=== PATIENT | female | born 1950 | race Caucasian/White ===

== ENCOUNTER 2021-01-29 09:01 | Emergency (ER) | payer OTHER, SELFPAY ==
[~2021-01-29] VITALS: Ht 157.5 cm; Wt 72.9 kg
--- NOTE | 2021-01-29 09:18 | NUR ---
PT BIB FRIEND VIA POV. PER PT SHE HAS HAD R FLANK PAIN, RADIATING TO FRONT ABD RLQ. PT STATE SHE WOKE UP THIS MORNING WITH BLOOD IN URINE. PT STATES HER PAIN IS 7/10. FRANCOIS SULTANA AT BEDSIDE FOR EVAL. PT STATES NO MEDICAL HX. PT RESTING IN [facility], URINE SAMPLE SENT TO [facility] AT THIS TIME, [facility].
[2021-01-29] MEDS ORDERED: ONDANSETRON 2MG/ML, 2ML IVPush ONE (09:30)
[2021-01-29] MEDS ORDERED: SODIUM CHLORIDE FLUSH 10ML SYR IVF ONE (09:30)
[2021-01-29] MEDS ORDERED: KETOROLAC 30 MG/1 ML IVPush ONE (09:30)
[2021-01-29 09:32] LABS: MICROSCOPIC INDICATED
[2021-01-29] MEDS ORDERED: KETOROLAC 30 MG/1 ML ONE (09:35)
[2021-01-29] MEDS ORDERED: ONDANSETRON 2MG/ML, 2ML ONE (09:35)
[2021-01-29 09:50] LABS: BASOPHILS % (AUTO) 1 % (0-1); EOSINOPHILS % (AUTO) 1 % (1-7); LYMPHOCYTES % (AUTO) 22 % (22-44); MEAN CORPUSCULAR HGB CONC 34.5 g/dL (32.4-35.8); MEAN PLATELET VOLUME 7.2 fL (7.4-10.4); MONOCYTES % (AUTO) 7 % (2-9); NEUTROPHILS % (AUTO) 69 % (42-75); PLATELET COUNT 312 x10^3/uL (130-400); RED BLOOD COUNT 4.43 x10^6/uL (3.82-5.3); RED CELL DISTRIBUTION WIDTH 14.6 % (9.6-15.2)
[2021-01-29 09:52] LABS: MD NO
[2021-01-29 10:00] LABS: ALANINE AMINOTRANSFERASE 15 U/L (12-78); ALBUMIN 3.7 g/dL (3.4-5.0); ANION GAP 7 mmol/L (5-15); CALCIUM 9.5 mg/dL (8.5-10.1); CHLORIDE 115 mmol/L (98-107); CREATININE 1.25 mg/dL (0.55-1.02)
[2021-01-29 10:02] LABS: ALKALINE PHOSPHATASE 85 U/L (45-117); BILIRUBIN,TOTAL 0.9 mg/dL (0.2-1.0); TOTAL PROTEIN 7.3 g/dL (6.4-8.2)
--- NOTE | 2021-01-29 11:23 | NUR ---
dr wilson spoke with dr ventura
[2021-01-29 11:40] VITALS: BP 138/81
== END 2021-01-29 11:42 | disposition home or self-care (01) ==
LOC: ED 09:28
DX: N10 Acute pyelonephritis (principal); N28.9 Disorder of kidney and ureter, unspecified; N20.2 Calculus of kidney with calculus of ureter; R11.2 Nausea with vomiting, unspecified
CPT/HCPCS: 36415; 74176; 80053; 81001; 85025; 87086; 96374; 96375; 99284; J1885; J2405

== ENCOUNTER 2021-03-24 15:20 | Day surgery (SDC) | payer OTHER ==
[~2021-03-24] VITALS: Ht 154.9 cm; Wt 71.2 kg
[~2021-03-24 15:20] MED LIST: TAMS-11 PO; ZOLP-413 PO
[2021-03-24] MEDS ORDERED: CHLORHEXIDINE 15 ML UDC ONE (15:52)
[2021-03-24 15:57] VITALS: BP 157/89
[2021-03-24] MEDS ORDERED: LACTATED RINGERS 1,000 ML IV SCH (16:00)
[2021-03-24] MEDS ORDERED: CHLORHEXIDINE 15 ML UDC PO ONE (16:00)
[2021-03-24] MEDS ORDERED: AMBEREN PO (16:01)
[2021-03-24] MEDS ORDERED: IBUPROFEN PO (16:01)
[2021-03-24] MEDS ORDERED: OMNIPAQUE 350 MG/ML, 50 ML BOTTLE ONE (20:14)
[2021-03-24] MEDS ORDERED: FENTANYL PF 250 MCG/5ML ONE (20:41)
[2021-03-24] MEDS ORDERED: CEFAZOLIN 1,000 MG ONE (20:43)
[2021-03-24] MEDS ORDERED: ROCURONIUM 10 MG/ML,10ML ONE (20:43)
[2021-03-24] MEDS ORDERED: GLYCOPYRROLATE 0.2MG/1ML, 5ML ONE (20:43)
[2021-03-24] MEDS ORDERED: NEOSTIGMINE 1 MG/ML, 10ML ONE (20:43)
[2021-03-24] MEDS ORDERED: SUGAMMADEX 200 MG/2 ML IVPush ONE (20:43)
[2021-03-24] MEDS ORDERED: ONDANSETRON 2MG/ML, 2ML ONE (20:43)
[2021-03-24] MEDS ORDERED: DEXAMETHASONE 4 MG/ML, 1ML ONE (20:43)
[2021-03-24] MEDS ORDERED: PROPOFOL 10 MG/ML, 20ML ONE (20:43)
[2021-03-24] MEDS ORDERED: PROMETHAZINE 25 MG/ML, 1ML IVPush PRN (21:00)
[2021-03-24] MEDS ORDERED: FENTANYL PF 100 MCG/2ML IV PRN (21:00)
[2021-03-24] MEDS ORDERED: MEPERIDINE/PF 25MG/0.5ML IVPush PRN (21:00)
[2021-03-24] MEDS ORDERED: morphine SULFATE 10 MG/ML, 1ML IVPush PRN (21:00)
[2021-03-24] MEDS ORDERED: ACETAMINOPHEN 325 MG TABLET PO PRN (21:00)
[2021-03-24] MEDS ORDERED: HYDROmorphone 1 MG/ML, 1ML INJ IVPush PRN (21:00)
[2021-03-24] MEDS ORDERED: HALOPERIDOL 5 MG/ML IV PRN (21:00)
[2021-03-24] MEDS ORDERED: LABETALOL 5MG/ML, 20ML IV PRN (21:00)
[2021-03-24] MEDS ORDERED: hydrALAzine 20 MG/ML, 1ML IV PRN (21:00)
[2021-03-24] MEDS ORDERED: OXYcodone 5 MG/5 ML ORAL.SOL UDC PO PRN (21:00)
[2021-03-24] MEDS ORDERED: PROMETHAZINE 25 MG/ML, 1ML ONE (21:34)
== END 2021-03-24 22:48 | disposition home or self-care (01) ==
LOC: OR 15:20
PROVIDERS: ATTEND Student in an Organized Health Care Education/Training Program
DX: N13.2 Hydronephrosis with renal and ureteral calculous obstruction (principal); K21.9 Gastro-esophageal reflux disease without esophagitis; Z79.899 Other long term (current) drug therapy; Z84.1 Family history of disorders of kidney and ureter
CPT/HCPCS: 52356; 93005; C1758; C1769; C2617; J0690; J1100; J2405; J2550; J2704; J2710; J3010; J7120; Q9967